=== PATIENT | male | born 1950 | race Caucasian/White ===

== ENCOUNTER 2016-06-24 08:58 | Outpatient (RCR) | payer MEDICARE, OTHER ==
[~2016-06-24] VITALS: Ht 180.3 cm; Wt 78.5 kg
[~2016-06-24 08:58] MED LIST: KEFLEX500 MG ORAL
[2016-06-26] MEDS ORDERED: Lidocaine HCl 2% Jelly 5ml Tube TOPIC ONE (15:45)
== END 2016-07-05 | disposition home or self-care (01) ==
LOC: WCC 08:58
DX: S91.102A Unspecified open wound of left great toe without damage to nail, initial encounter (principal); S91.302A Unspecified open wound, left foot, initial encounter; X58.XXXA Exposure to other specified factors, initial encounter; Y93.9 Activity, unspecified; Y92.9 Unspecified place or not applicable; I10 Essential (primary) hypertension; M06.9 Rheumatoid arthritis, unspecified; Z82.3 Family history of stroke; F17.200 Nicotine dependence, unspecified, uncomplicated
CPT/HCPCS: 11042; 11043; G0463

== ENCOUNTER → 2016-06-29 | Outpatient (CLI) | payer MEDICARE, OTHER ==
[~2016-06-29] VITALS: Ht 180.3 cm; Wt 78.5 kg
--- NOTE | 2016-06-29 16:31 | Diagnostic Imaging Report ---
APPROVED REPORT CPT Code: 99329 Present Symptoms Comments: Swelling and pain (left leg) Hx of left leg bypass graft RIGHT LEG: Venous imaging reveals a patent deep venous system. There is no evidence of thrombus within the femoral, popliteal or tibial segments. The greater saphenous vein is also within normal limits. Doppler indicates normal spontaneous flow within these segments. LEFT LEG: Venous imaging reveals acute thrombus in the popliteal vein. Imaging also reveals patency of the common femoral and calf veins. Greater saphenous vein also within normal limits. DoctDr. Anabel's office EZEQUIEL Chelsea was notified of abnormal results at 1230 hours.
--- NOTE | 2016-06-29 16:31 | Diagnostic Imaging Report ---
APPROVED REPORT CPT Code: 95555 Symptoms Comments: Swelling/ Non healing ulcer Comments Hx of left femoral popliteal bypass graft RIGHT LEG: Common femoral artery waveform analysis is within normal limits at rest. Color flow duplex sonography reveals calcification throughout the superficial femoral and popliteal arteries. There is no evidence of stenosis or occlusion within these segments. The tibioperoneal trunk is also patent. Ankle-brachial indices (1.0) and, Doppler tibial artery waveform analysis are within normal limits. LEFT LEG: Iliac and common femoral arteries are patent at rest. Duplex sonography reveals occlusion of the superficial femoral artery to popliteal artery bypass graft. The profunda femoral artery was patent. Doppler waveforms could not be elicited from the anterior tibial and dorsalis pedis arteries. Ankle-brachial indices could not be performed, due to the graft and location of the ankle ulcer. The posterior tibial artery is patent and Doppler tibial artery waveform analysis is monophasic, consistent with severe ischemia at rest (48.4 cm/s). Dr. Little's office EZEQUIEL Tran was notified of abnormal results at 1230 hours.
== END | disposition home or self-care (01) ==
LOC: VAS 10:07
DX: L98.492 Non-pressure chronic ulcer of skin of other sites with fat layer exposed (principal); M79.605 Pain in left leg
CPT/HCPCS: 93925; 93970

== ENCOUNTER 2016-07-21 14:29 | Outpatient (RCR) | payer MEDICARE, OTHER | END 2016-08-05 | disposition home or self-care (01) | LOC: WCC 14:29 | DX: L97.523 Non-pressure chronic ulcer of other part of left foot with necrosis of muscle (principal); L97.529 Non-pressure chronic ulcer of other part of left foot with unspecified severity; I73.89 Other specified peripheral vascular diseases; I10 Essential (primary) hypertension; M06.9 Rheumatoid arthritis, unspecified | CPT/HCPCS: 11043 ==

== ENCOUNTER 2016-09-01 14:36 | Outpatient (RCR) | payer MEDICARE, OTHER | END 2016-09-04 | disposition home or self-care (01) | LOC: WCC 14:36 | DX: L97.323 Non-pressure chronic ulcer of left ankle with necrosis of muscle (principal); L97.522 Non-pressure chronic ulcer of other part of left foot with fat layer exposed; I73.89 Other specified peripheral vascular diseases; I70.202 Unspecified atherosclerosis of native arteries of extremities, left leg; I10 Essential (primary) hypertension; M06.9 Rheumatoid arthritis, unspecified | CPT/HCPCS: 11042 ==